=== PATIENT | male | born 2000 | race African-American/Black ===

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

== ENCOUNTER 2022-12-29 18:46 | Emergency (ER) | payer OTHER, SELFPAY | END 2022-12-29 19:59 | disposition home or self-care (01) | LOC: ERS 18:46 | DX: T16.2XXA Foreign body in left ear, initial encounter (principal); F17.210 Nicotine dependence, cigarettes, uncomplicated | CPT/HCPCS: 69200 ==

== ENCOUNTER 2023-07-18 08:32 | Emergency (ER) | payer SELFPAY ==
[2023-07-18 10:54] LABS: Bacteria/HPF None Seen HPF (None Seen); Bilirubin Negative (Negative); Blood, Urine Negative (Negative); CAUTI Indications for Culture Dysuria,urgency,freq; Clarity Clear (Clear); Glucose, Urine (Dipstick) Normal (Negative); Ketone, Urine Negative (Negative); Leukocyte 25 Leu/uL (Negative); Nitrite Negative (Negative); Protein, Urine (Dipstick) 30 mg/dL (Neg-Trace); RBC/HPF 0-3 HPF (0-3); Specific Gravity, Urine 1.041 (1.002-1.036); Squamous Epithelial 0-3 HPF (0-3); Urobilinogen Normal mg/dL (Less than 2)
[2023-07-18 10:55] LABS: Urine Culture Reflex No No
[2023-07-18 13:33] LABS: Chlam.trachomatis by PCR,Urine Not Detected (NotDetected); GC N.gonorrhoeae PCR,UrineVOID Not Detected (NotDetected)
== END 2023-07-18 12:16 | disposition left against medical advice (07) ==
LOC: ERS 08:32
DX: N50.812 Left testicular pain (principal); F17.290 Nicotine dependence, other tobacco product, uncomplicated
CPT/HCPCS: 76870; 81001; 87491; 87591; 93976